=== PATIENT | female | born 1960 | race Caucasian/White ===

== ENCOUNTER 2018-03-05 19:56 | Emergency (ER) | payer MEDICAID ==
[~2018-03-05] VITALS: Ht 154.9 cm; Wt 63.6 kg
[~2018-03-05 19:56] MED LIST: AMLO-511 PO; ASPI81 PO; CLON.5 PO; DOCU250C91 PO; INSLAN SQ; MIRT15 PO; TRAZ-147 PO
[2018-03-05] MEDS ORDERED: HYDR12.530 PO (20:12)
[2018-03-05 22:15] VITALS: BP 153/87
== END 2018-03-05 22:16 | disposition home or self-care (01) ==
LOC: EMS 19:58
DX: F41.9 Anxiety disorder, unspecified (principal); I10 Essential (primary) hypertension; Z88.0 Allergy status to penicillin
CPT/HCPCS: 93005; 99285

== ENCOUNTER 2021-08-03 13:08 | Emergency (ER) | payer MEDICAID ==
[~2021-08-03] VITALS: Ht 154.9 cm; Wt 61.8 kg
[~2021-08-03 13:08] MED LIST changes: -AMLO-511 PO; -ASPI81 PO; -CLON.5 PO; -DOCU250C91 PO; +HYDR12.530 PO; -INSLAN SQ; -MIRT15 PO; -TRAZ-147 PO
[2021-08-03 15:01] LABS: COVID AG,FIA SOURCE NASOPHARYNGEAL
[2021-08-03] MEDS: ACETAMINOPHEN 325 MG TABLET PO ONE (17:19)
[2021-08-03] MEDS: AZITHROMYCIN 500 MG TABLET PO ONE (17:57)
[2021-08-03 18:16] VITALS: BP 119/79
== END 2021-08-03 18:17 | disposition home or self-care (01) ==
LOC: EMS 13:14
DX: J18.0 Bronchopneumonia, unspecified organism (principal); E11.9 Type 2 diabetes mellitus without complications; I10 Essential (primary) hypertension; Z20.822 Contact with and (suspected) exposure to COVID-19; Z88.0 Allergy status to penicillin
CPT/HCPCS: 71045; 87426; 99284; Q9967; U0003